=== PATIENT | male | born 1985 | race Caucasian/White ===

== ENCOUNTER 2016-11-16 00:49 | Emergency (ER) | payer SELFPAY ==
[~2016-11-16] VITALS: Ht 188 cm; Wt 131.5 kg
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
[~2016-11-16 00:49] MED LIST: VICODIN 5/1 TAB 5/50 PO
== END 2016-11-16 03:29 | disposition home or self-care (01) ==
LOC: CED 00:49
DX: S01.511A Laceration without foreign body of lip, initial encounter (principal); S00.93XA Contusion of unspecified part of head, initial encounter; Y04.0XXA Assault by unarmed brawl or fight, initial encounter; Y92.410 Unspecified street and highway as the place of occurrence of the external cause
CPT/HCPCS: 12051; 70450; 70486; 99283